=== PATIENT | male | born 1975 | race Two or more races ===

== ENCOUNTER 2020-12-08 15:36 | Emergency (ER) | payer MEDICAID ==
[~2020-12-08] VITALS: Ht 190.5 cm; Wt 88.5 kg
[2020-12-08 15:36] VITALS: BP 113/79
== END 2020-12-08 17:15 | disposition home or self-care (01) ==
LOC: ER 15:36
DX: S01.01XA Laceration without foreign body of scalp, initial encounter (principal); F17.210 Nicotine dependence, cigarettes, uncomplicated; W18.39XA Other fall on same level, initial encounter; Y93.89 Activity, other specified; Y92.89 Other specified places as the place of occurrence of the external cause; Y99.8 Other external cause status
CPT/HCPCS: 12002; 70450

== ENCOUNTER 2020-12-23 00:28 | Emergency (ER) | payer MEDICAID ==
[~2020-12-23] VITALS: Ht 193 cm; Wt 86.2 kg
[2020-12-23 03:29] VITALS: BP 137/99
== END 2020-12-23 03:51 | disposition home or self-care (01) ==
LOC: ER 00:28
DX: S01.01XD Laceration without foreign body of scalp, subsequent encounter (principal); F17.210 Nicotine dependence, cigarettes, uncomplicated; W18.09XD Striking against other object with subsequent fall, subsequent encounter